=== PATIENT | male | born 1995 | race Caucasian/White ===

== ENCOUNTER 2018-09-06 12:42 | Emergency (ER) | payer SELFPAY | END 2018-09-06 14:40 | disposition left against medical advice (07) | LOC: D.ER 12:42 | DX: M54.9 Dorsalgia, unspecified (principal) ==

== ENCOUNTER 2020-01-16 07:35 | Day surgery (SDC) | payer OTHER ==
[2020-01-14 16:07] LABS: BASOPHILS 0.2 % (0-2); EOSINOPHILS 10.8 % (0-7); HEMATOCRIT 48.2 % (42.0-54.0); HEMOGLOBIN 16.3 g/dL (13.5-17.5); IMMATURE GRANULOCYTES 3.3 % (0-5); LYMPHOCYTES 30.5 % (15-50); MCH 30.5 pg (26.0-34.0); MCHC 33.8 g/dL (31.0-37.0); MCV 90.1 fL (80.0-100.0); MEAN PLATELET VOLUME 11.5 fL (7.4-10.4); MONOCYTES 5.1 % (2-11); NEUTROPHILS 50.1 % (40-80); PLATELET COUNT 175 10x3/uL (130-400); RBC 5.35 10x6/uL (4.20-6.10); RDW 12.5 % (11.5-14.5)
[2020-01-14 16:23] LABS: CALC OSMOLALITY 277 mosm/kg (275-300); CALCIUM 9.1 mg/dL (8.5-10.1); CARBON DIOXIDE 24.8 mmol/L (21.0-32.0); CHLORIDE - SERUM 104 mmol/L (98-107); CREATININE - SERUM 1.1 mg/dL (0.6-1.3); GLUCOSE 91 mg/dL (74-106); POTASSIUM - SERUM 3.8 mmol/L (3.5-5.1); SODIUM 139 mmol/L (136-145); UREA NITROGEN 13 mg/dL (7-18); eGFR NON AFRICAN AMERICAN 86 mL/min (90-120)
[~2020-01-16] VITALS: Ht 180.3 cm; Wt 90.7 kg
--- NOTE | ~2020-01-16 | OP ---
PATIENT NAME: ESME WISE MEDICAL RECORD: [id number] :93 LOCATION:D.OPS ADMISSION DATE: SURGEON: WESLEY CORRIGAN MD DATE OF OPERATION: 01/16/2020 PREOPERATIVE DIAGNOSIS: Biliary dyskinesia. POSTOPERATIVE DIAGNOSIS: Biliary dyskinesia. PROCEDURE: Laparoscopic cholecystectomy. SURGEON: Wesley Corrigan MD REPORT OF PROCEDURE: The patient's abdomen was prepped and draped in sterile fashion. A cutdown was made on the superior aspect of the umbilicus, 0 Vicryls were placed in the fascia bilaterally and the fascia was incised with a 15-blade. I then bluntly entered the peritoneal cavity and placed a 12-mm Nina port. Under direct visualization, a 5 mm trocar was placed in the epigastrium and 2 more 5-mm trocars were placed in the right subcostal region. The gallbladder was grasped and elevated. There were some inflammatory adhesions present and these were teased down carefully with blunt dissection. The cystic artery and cystic duct were dissected free and these were clipped proximally and distally and ligated in standard fashion. The gallbladder was taken off the liver bed using electrocautery and placed into an Endo Catch bag. The right upper quadrant was irrigated out and care was taken to assure there was no sign of any bleeding or bile leakage. The ports and insufflation were then removed and the gallbladder was taken out through the umbilicus. The umbilical fascia was closed with interrupted 0 Vicryls times 3. The wounds were then irrigated out with normal saline and infused with 10 mL of 0.25% Marcaine with epinephrine. The skin incisions were all closed with subcutaneous 5-0 Monocryl and dressed appropriately. COMPLICATIONS: None. CONDITION: Stable. ANESTHESIA: General endotracheal and local. BLOOD LOSS: Minimal. TRANSINT:[id number] Voice Confirmation ID: [id number] DOCUMENT ID: [id number] cc: Dr. 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
[~2020-01-16 07:35] MED LIST: HYDROCODON-ACE1 EA10 PO
[2020-01-16 08:09] VITALS: BP 112/67; Ht 180.3 cm; Wt 90.7 kg
--- NOTE | 2020-01-16 14:07 | NUR ---
1345 PT C/O PAIN INCREASING. REPORTS PAIN LEVEL AT 7 OUT OF 10.
--- NOTE | 2020-01-16 14:09 | NUR ---
1403 PT MEDICATED WITH NORCO FOR PAIN.
--- NOTE | 2020-01-16 14:45 | NUR ---
1435 PT BACK TO BED. PT HAS NOT BEEN ABLE TO VOID. STATES HE FEELS THE URGE TO GO. STATES PAIN LEVEL HAS DECREASED AND REMAINS AT A 5 OUT OF 10.
--- NOTE | 2020-01-16 14:51 | NUR ---
1440 RECIEVED REPORT FROM OLIVIA. PT DROWSY AND EASY TO ARROUSE. COLOR GOOD. FAMILY AT BEDSIDE.
--- NOTE | 2020-01-16 16:05 | NUR ---
1540 VOIDED X1 1550 IV REMOVED AND INSTRUCTIONS GIVEN.
== END 2020-01-16 16:00 | disposition home or self-care (01) ==
LOC: D.OPS 07:35 → D.PAN 10:00 → D.OPS 10:00
PROVIDERS: ATTEND Surgery
DX: K82.8 Other specified diseases of gallbladder (principal)